=== PATIENT | male | born 1935 | race Caucasian/White ===

== ENCOUNTER 2016-12-25 07:01 | Emergency (ER) | payer MEDICARE, BC ==
[~2016-12-25] VITALS: Ht 172.7 cm; Wt 80.0 kg
[2016-12-25] MEDS ORDERED: METOPROL TAR25 MG PO (07:25)
[2016-12-25] MEDS ORDERED: ASPIRIN81 MG PO (07:26)
[2016-12-25] MEDS ORDERED: CARB/LEVO1 TA5 PO (07:26)
[2016-12-25] MEDS ORDERED: OXYCODONE HCL15 MG PO (07:27)
[2016-12-25] MEDS ORDERED: ALLOPURINOL100 MG PO (07:29)
[2016-12-25] MEDS ORDERED: [UNRECOGNIZED DRUG - OTHER] (07:31)
[2016-12-25 07:38] LABS: HEMATOCRIT 40.8 % (39.0-50.0); HEMOGLOBIN 13.2 g/dl (14.0-18.0); IMMATURE GRANULOCYTES 0.2 % (0.0-1.0); MEAN CELL VOLUME 100.7 fL CALC (80.0-100.0); MEAN CORPUSCULAR HGB 32.6 pG CALC (26.0-32.0); MEAN CORPUSCULAR HGB CONC 32.4 g/L CALC (32.0-36.0); NEUT# 5.58 thou/uL (1.82-7.42); RED BLOOD COUNT 4.05 mill/uL (4.70-6.10); RED CELL DISTRI WIDTH 13.1 % (11.5-15.5)
[2016-12-25 07:50] LABS: ALBUMIN 4.2 g/dL (3.2-5.0); ALKALINE PHOSPHATASE 83 u/l (38-126); ANION GAP 14 (6-22 (CALC)); BILIRUBIN, TOTAL 0.9 mg/dL (0.0-1.4); BUN 18 mg/dL (8-23); BUN/CREATININE RATIO 16 (12-20 (CALC)); CALCIUM 9.6 mg/dL (8.4-10.2); CARBON DIOXIDE 28 mmol/l (22-30); CHLORIDE 104 mmol/l (95-108); CREATININE 1.1 mg/dL (0.7-1.3); GFR > 60 ML/MIN (>=60 (CALC)); GFR FOR AFR.AMER. > 60 ML/MIN (>=60 (CALC)); GLUCOSE 101 mg/dL (82-115); POTASSIUM 4.4 mmol/l (3.5-5.1); SGOT/AST 20 u/l (19-48); SGPT/ALT 17 u/l (11-66); SODIUM 142 mmol/l (137-146); TOTAL PROTEIN 7.2 g/dL (6.3-8.2)
[2016-12-25 08:02] LABS: MYOGLOBIN 100 ng/mL (0 - 121)
[2016-12-25 08:55] LABS: PROTHROMBIN TIME 11.1 SECONDS (9.0-12.5)
[2016-12-25 09:25] VITALS: BP 166/78
== END 2016-12-25 09:25 | disposition short-term general hospital (02) ==
LOC: ED 07:01
PROVIDERS: Family Medicine
DX: G93.89 Other specified disorders of brain (principal); I25.10 Atherosclerotic heart disease of native coronary artery without angina pectoris; G20 Parkinson's disease; Z85.46 Personal history of malignant neoplasm of prostate; R40.2410 Glasgow coma scale score 13-15, unspecified time